=== PATIENT | male | born 1990 | race Caucasian/White ===

== ENCOUNTER 2023-12-29 10:18 | Emergency (ER) | payer OTHER, SELFPAY ==
[2023-12-29 10:27] VITALS: BP 131/80; PULSE 70; RESP 16; TEMP 36.8; O2SAT 100
--- NOTE | 2023-12-29 11:34 | ED.GENADULT ---
HPI - General Adult General Chief complaint: Dental/Oral Stated complaint: tooth infection Source: patient Mode of arrival: ambulatory Limitations: no limitations History of Present Illness HPI narrative: Patient presents for evaluation of left lower dental pain for the last 3 days. Pain is constant, throbbing, 6/10 in severity. No fever, chills, or vomiting. He does have nausea. He tried taking ibuprofen for symptoms without considerable improvement thereafter. He has a known dental fracture in the affected area. Related Data Allergies Allergy/AdvReac Type Severity Reaction Status Date / Time No Known Allergies Allergy Verified 06/06/13 21:50 Review of Systems Review of Systems: CONSTITUTIONAL: Denies fever, chills, or sweats. EYES: Denies visual changes, redness, or discharge. ENT: Reports left lower dental pain. Denies rhinorrhea, congestion, sore throat, or otalgia. CARDIOVASCULAR: Denies chest pain, palpitations, or edema. RESPIRATORY: Denies cough or dyspnea. GASTROINTESTINAL: Denies abdominal pain, nausea, vomiting, or diarrhea. GENITOURINARY: Denies dysuria or hematuria. SKIN: Denies rash or itching. MUSCULOSKELETAL: Denies back pain, joint pain, or myalgia. NEUROLOGIC: Denies headache, numbness, dizziness, or weakness. PSYCHIATRIC: Denies anxiety or depression. [facility] Past Medical History Medical History No pertinent past medical history Surgical History Surgical History No pertinent past surgical history Family History Family History Mother Family history non-contributory Social History Social History (Updated 12/29/23 @ 11:46 by RADHA Briggs, ) Substance use: current Substance use type: marijuana Living arrangements: alone Gender identity (if verbalized by the patient): Male Spiritual care concerns: No Exam Narrative: GENERAL: Well-appearing, well-nourished, and in no acute distress. HEAD: Normocephalic, atraumatic. EYES: PERRLA and EOMI. ENT: Nares clear, no rhinorrhea or epistaxis. Mucous membranes moist. Oropharynx without tonsillar hypertrophy exudate or other lesions. Bilateral TMs pearly underwood nonbulging. Tooth #22 is fractured. There is no visible or palpable abscess. NECK: Supple. No adenopathy or masses. No carotid bruits or JVD CHEST: Clear to auscultation. No respiratory distress. No wheezes rales or rhonchi HEART: Regular rate and rhythm. No murmur heard. Normal peripheral pulses. ABDOMEN: Soft, nontender, nondistended, normal active bowel sounds. EXTREMITIES: Normal range of motion. No edema. SKIN: Warm, dry, no rash. NEURO: No focal deficits. Alert and oriented x3. PSYCH: Normal mood and affect. Course Course Emergency Course: This is a 33-year-old male who presented for evaluation of a dental fracture. Will dc with PCN vk and hydrocodone as NSAIDs have been ineffective and tramadol causes nausea. Follow up with dentist. Go to the ER for facial swelling, fever or intractable pain. Pt in agreement with plan of care. Level of Care: Express Care Visit Vital Signs Vital signs: Vital Signs Temperature 36.8 C 12/29/23 10:27 Pulse Rate 70 12/29/23 10:27 Respiratory Rate 16 12/29/23 10:27 Blood Pressure 131/80 12/29/23 10:27 Pulse Oximetry 100 12/29/23 10:27 Oxygen Delivery Room Air 12/29/23 10:27 Temperature 36.8 C 12/29/23 10:27 Pulse Rate 70 12/29/23 10:27 Respiratory Rate 16 12/29/23 10:27 Blood Pressure 131/80 12/29/23 10:27 Pulse Oximetry 100 12/29/23 10:27 Oxygen Delivery Room Air 12/29/23 10:27 Medical Decision Making Vital Signs Vital Signs: Vital Signs Temperature 36.8 C 12/29/23 10:27 Pulse Rate 70 12/29/23 10:27 Respiratory Rate 16 12/29/23 10:27 Blood Pressure 131/80
== END 2023-12-29 11:04 | disposition home or self-care (01) ==
PROVIDERS: Emergency Provider Nurse Practitioner
DX: S02.5XXA Fracture of tooth (traumatic), initial encounter for closed fracture (principal); X58.XXXA Exposure to other specified factors, initial encounter; F12.90 Cannabis use, unspecified, uncomplicated
CPT/HCPCS: 99203; G0463